=== PATIENT | female | born 1965 | race African-American/Black ===

== ENCOUNTER 2019-12-03 19:28 | Emergency (ER) | payer MEDICAID ==
[~2019-12-03] VITALS: Ht 172.7 cm; Wt 107.0 kg
[2019-12-03] MEDS ORDERED: ASPIRIN 81MG TABLET PO ONE (20:45)
[2019-12-03 21:01] LABS: BASOPHILS % 0.8 % (0.0-2.0); EOSINOPHILS % 4.4 % (0.0-5.0); HEMATOCRIT. 38.9 % (36.0-48.0); HEMOGLOBIN. 13.5 g/dL (12.0-16.0); LYMPHOCYTES % 34.7 % (20.0-50.0); MEAN CORPUSCULAR HEMOGLOBIN 32.2 pg (28.0-32.0); MONOCYTES % 6.4 % (2.0-8.0); NEUTROPHILS % 53.7 % (40.0-76.0); PLATELET 245 x1000/uL (130-400); RED BLOOD CELL COUNT 4.18 mill/uL (4.2-5.4); RED CELL DISTRIBUTION WIDTH 12.8 % (11.6-14.6)
[2019-12-03 21:03] LABS: CHLORIDE 104 mEq/L (98-107)
[2019-12-03 21:09] LABS: PARTIAL THROMBOPLASTIN TIME 25.3 sec (23.4-31.0); PROTHROMBIN TIME 10.5 sec (9.6-11.0)
[2019-12-03 22:56] LABS: CLARITY URINE CLEAR (CLEAR); COLOR URINE YELLOW (YELLOW); KETONES URINE NEGATIVE (NEGATIVE); LEUKOCYTE ESTERASE URINE NEGATIVE (NEGATIVE); NITRITE URINE POSITIVE (NEGATIVE); OCCULT BLOOD URINE NEGATIVE (NEGATIVE); PROTEIN URINE NEGATIVE (NEGATIVE); SPECIFIC GRAVITY URINE 1.036 (1.005-1.030)
[2019-12-03] MEDS ORDERED: ACETAMINOPHEN 500MG TABLET PO ONE (23:45)
[2019-12-03] MEDS ORDERED: CLONIDINE 0.1MG TABLET PO ONE (23:45)
[2019-12-03] MEDS ORDERED: CEPHALEXIN 250MG CAPSULE PO ONE (23:45)
[2019-12-04 00:05] VITALS: BP 180/95
== END 2019-12-04 00:10 | disposition home or self-care (01) ==
LOC: ER 19:28
DX: N39.0 Urinary tract infection, site not specified (principal); R07.89 Other chest pain; R51 Headache; E11.9 Type 2 diabetes mellitus without complications; I10 Essential (primary) hypertension; Z98.890 Other specified postprocedural states
CPT/HCPCS: 36415; 71045; 80053; 81003; 82962; 83880; 84484; 85025; 85610; 85730; 93005; 99285; Z7610

== ENCOUNTER 2020-07-16 22:57 | Emergency (ER) | payer MEDICAID ==
[~2020-07-16] VITALS: Ht 175.3 cm; Wt 104.0 kg
[2020-07-17] MEDS ORDERED: KETOROLAC 30MG/ML VIAL IV ONE
[2020-07-17 00:57] LABS: HEMATOCRIT 32.2 % (36.0-48.0); HEMOGLOBIN 10.7 g/dL (12.0-16.0); MEAN CORPUSCULAR VOLUME 93.4 fL (81.0-99.0); PLATELET 225 x1000/uL (130-400); RED BLOOD CELL COUNT 3.44 mill/uL (4.2-5.4); RED CELL DISTRIBUTION WIDTH 13.9 % (11.6-14.6)
[2020-07-17 01:03] LABS: CHLORIDE 103 mEq/L (98-107)
[2020-07-17] MEDS ORDERED: IOHEXOL-300 100 ML BOTTLE ONE (03:13)
[2020-07-17] MEDS ORDERED: MORPHINE SULFATE 4 MG/ML CPJ (NOT FOR IM USE) IV ONE (03:15)
[2020-07-17 03:39] VITALS: BP 138/64
== END 2020-07-17 04:51 | disposition home or self-care (01) ==
LOC: ER 22:57
DX: S70.11XA Contusion of right thigh, initial encounter (principal); X58.XXXA Exposure to other specified factors, initial encounter; Y93.89 Activity, other specified; Y92.89 Other specified places as the place of occurrence of the external cause; I10 Essential (primary) hypertension; E11.9 Type 2 diabetes mellitus without complications
CPT/HCPCS: 36415; 72193; 80053; 85027; 87040; 93005; 96374; 96375; 99285; J1885; J2270; Q9967